=== PATIENT | female | born 2000 | race Caucasian/White ===

== ENCOUNTER 2020-04-15 19:55 | Emergency (ER) | payer BC, SELFPAY ==
[2020-04-15 19:56] VITALS: BP 135/76; PULSE 104; RESP 16; TEMP 35; O2SAT 97; BMI 35.0
--- NOTE | 2020-04-15 20:18 | CT_ITS ---
HISTORY: RLQ PAIN X 5 DAYS TECHNIQUE: Helically acquired images were obtained of the abdomen and pelvis following the intravenous administration of 100 ML of Isovue-370 Iodinated contrast. 2D reformats. No oral contrast was administered. A radiation dose optimization technique was used for this scan. COMPARISON: None FINDINGS: # of images incl. paperwork: 407 LUNG BASES: Clear. 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 Liver, spleen, pancreas, and adrenal glands, are normal. The kidneys are normal. The aorta is normal. The patient has a circumaortic left renal vein which is a normal anatomic variant. CT pelvis: Trace pelvic ascites is present. The appendix is normal. Series 2 image 85. The the uterus and right ovary are normal. The left ovary is expanded with a rim-enhancing cystic lesion, likely a dominant follicle in this 19-year-old patient. The left ovarian cystic lesion measures 5.3 cm in long axis dimension, and as a central density of 26 Hounsfield units.. The bladder is decompressed. Bowel-gas pattern is normal. CT/Abdomen/Pelvis W IV Cont ONLY IMPRESSION: Small amount of pelvic free fluid which could be slightly hemorrhagic. Within the left ovary there is a 5.3 cm rim-enhancing lesion most likely representing a dominant follicle. Individualized dose optimization techniques were used for this CT. at 2142 Reported and signed by: Adrián Fuentes MD Electronically Signed: Adrián Fuentes MD at 21:41 EST Tel , Service support ,
--- NOTE | 2020-04-15 20:45 | ED.VISSUMM ---
- ER Visit Summary Date of Service: 04/15/20 Chief Complaint: Abdominal pain History of Present Illness: The patient is a 19 F presenting with abdominal pain. She states this started on Thursday. Pain is in the lower quadrants. She denies nausea or vomiting. Denies decreased appetite. Denies diarrhea or constipation. Denies urinary complaints. Denies possibility of . Her last menstrual period was March 29. Denies fever. Denies other complaints. Physical Examination: Vitals are stable. Patient is afebrile. Alert no acute distress. HEENT exam is unremarkable. Neck is supple. Lungs are clear and equal bilaterally. Heart is regular rate and rhythm. Abdomen is soft bilateral lower quadrant tenderness with no guarding or rebound Extremities are unremarkable. Skin is warm and dry. Remainder of exam is unremarkable. Emergency Department Course and Treatment: Patient given morphine, Zofran IV. CBC shows white count 12.0. Chemistries unremarkable other than potassium 3.4. Urinalysis unremarkable. hCG negative. Covid negative. CT abdomen pelvis shows small amount of pelvic free fluid which could be slightly hemorrhagic. Within the left ovary there is a 5.3 cm rim-enhancing lesion most likely representing a dominant follicle. Pelvic ultrasound shows 4.2 x 2.6 x 5.1 cm complex left ovarian cyst. On reevaluation patient is resting comfortably. She is given a prescription for [place]. Advised to follow-up with [facility]. Advised return to ED for worsening complaints. Disposition: Discharge home Impression: Abdominal pain, ovarian cyst This note was generated with [employer] dictation software. It may contain incorrect words, spelling, and punctuation that were not noted in review of the chart prior to signing ED Disposition - Plan for ED Patient: Instructions: ED Ovarian Cyst Prescriptions: Hydrocodone Bitart/Apap 5-325 [[place] 5MG-325MG] 1 tab PO Q6H PRN PRN 3 Days #10 tab PRN Reason: Pain Prescription Printed Referrals: Joann Alvarez MD [STAFF PHYSICIAN] -
[2020-04-15 20:53] LABS: Absolute Lymphocyte Count 4.15 X10^3/uL (0.83-4.51); Absolute Neutrophil Count 6.5 X10^3/uL (2.0-7.7); Basophil# 0.11 X10^3/uL; Basophil% 0.9 % (0-1); Eosinophil# 0.12 X10^3/uL; Hematocrit 39.5 % (37-47); Hemoglobin 13.3 g/dL (12.0-15.0); Lymphocyte # 4.15 X10^3/ul (4.0); Lymphocyte % 34.6 % (19-41); Mean Corp Hgb Conc 33.7 g/dL (32-36); Mean Corpuscular Hgb 29.9 pg (27.0-32.0); Mean Corpuscular Volume 88.8 fL (81-99); Mean Platelet Vol. 11.1 fl (6.2-12.0); Monocyte# 0.84 X10^3/uL; NRBC Flagged by Analyzer 0 % (0-5); Neutrophil # 6.52 X10^3/uL (2.7-7.7); Neutrophil % 54.4 % (47-70); Platelet Count 318 K/mm3 (150-450); RBC Distribution Width CV 11.9 % (11.6-14.6); RBC Distribution Width SD 38.4 fl (35.1-43.9); Red Blood Count 4.45 M/mm3 (4.2-5.4)
[2020-04-15 21:02] VITALS: BP 122/71; PULSE 83; RESP 14; O2SAT 97
[2020-04-15 21:03] LABS: Bacteria 0 SEEN /hpf (None Seen); Mucous, Urine 0 SEEN /hpf (<or=2+); Red Blood Cells-Urine 0 SEEN /hpf (0-5)
[2020-04-15 21:03] LABS: Internal QC Validated? YES +Cl - CLEAR BKGD; Pregnancy, Serum, hCG Quali. NEGATIVE Negative
[2020-04-15 21:09] LABS: AST(SGOT) 13 U/L (15-37); Alanine Aminotransfer ALT/SGPT 22 U/L (13-56); Alkaline Phosphatase 102 U/L (45-117); Anion Gap 6 (5-15); BUN 13 mg/dL (7-18); BUN/Creat Ratio 16.8 RATIO (10-20); Calcium,Total 8.8 mg/dL (8.5-10.1); Chloride 109 mmol/L (98-107); Creatinine, Serum 0.77 mg/dL (0.55-1.02); EST Glomerular Filtration Rate 99 mL/min (>60); Est Glom Filt Rate - Afr Amer 120 mL/min (>60); Globulin 3.9 g/dL (2.2-4.2); Glucose 99 mg/dL (74-106); Potassium 3.4 mmol/L (3.5-5.1); Protein, Total 7.9 g/dL (6.4-8.2); Sodium Level 140 mmol/L (136-145)
[2020-04-15 21:24] LABS: Color, Urine Yellow (Yellow); Glucose, Dipstick Normal (Normal); Ketone-Dipstick Negative (Negative); Leukocyte Esterase-Dipstick 25 /ul (Negative); Nitrite-Dipstick Negative (Negative); Occult Blood-Urine Negative /ul (Negative); Protein-Dipstick Negative (Negative); Urine Bilirubin Dipstick Negative (Negative); Urine Clarity Clear (Clear); Urine Urobilinogen Normal (Normal)
[2020-04-15 21:32] LABS: Squamous Epithelial Cells - UA 0-5 SEEN /hpf (5-10); White Blood Cells 0-5 SEEN /hpf (0-5)
--- NOTE | 2020-04-15 21:47 | US_ITS ---
HISTORY: 5 days of pelvic pain. LMP 03/29/2020. 113 images and one cine clip. Comparison CT scan of the abdomen and pelvis was performed just over one hour earlier. This demonstrated a left ovarian cyst. Findings: The cine clip demonstrates the complex left ovarian cyst adjacent to the urinary bladder in the left adnexal region. Transabdominal imaging: Urinary bladder is adequately distended. The uterus measures 7.4 x 3.9 x 4.1 cm. Color Doppler imaging demonstrates flow within the myometrium and not within the endometrium. The endometrial stripe is normal at 7 mm on these transabdominal images. The right ovary is well-defined with follicles. The right ovary measures 9.4 x 2.1 x 2.2 cm. Color Doppler imaging and pulse Doppler imaging suggest arterial and venous flow to right ovarian parenchyma. The left ovarian cyst is demonstrated. The left ovary measures 5 x 5.5 x 5.2 cm. The left ovarian cyst measures 4.2 x 3.6 x 5.1 cm. Color Doppler and pulse-wave Doppler imaging demonstrate arterial flow in the left ovarian parenchyma. No endovaginal imaging. US/Pelvic (Non ) IMPRESSION: 4.2 x 2.6 x 5.1 cm complex left ovarian cyst. Impression 1-year-old female this is likely follicular. Recommend follow-up imaging in 6-12 weeks to assess for resolution at 2303 Reported and signed by: Adrián Fuentes MD Electronically Signed: Adrián Fuentes MD at 23:02 EST Tel , Service support ,
[2020-04-15] MEDS: Ondansetron 4 MG/2 ML Vial IV (22:13)
[2020-04-15] MEDS: Morphine 4 MG/ML Syringe IV (22:13)
--- NOTE | 2020-04-15 22:14 | ED.DEP ---
ED Disposition - Plan for ED Patient: Instructions: ED Ovarian Cyst Prescriptions: Hydrocodone Bitart/Apap 5-325 [[place] 5MG-325MG] 1 tab PO Q6H PRN PRN 3 Days #10 tab PRN Reason: Pain Prescription Printed Referrals: Joann Alvarez MD [STAFF PHYSICIAN] -
[2020-04-15 23:45] VITALS: BP 124/89; PULSE 81; RESP 15; O2SAT 98
[2020-04-16 00:04] VITALS: BP 128/82; PULSE 86; RESP 14; O2SAT 99
== END 2020-04-16 00:06 | disposition home or self-care (01) ==
PROVIDERS: Emergency Provider Emergency Medicine
DX: R10.9 Unspecified abdominal pain (principal); N83.202 Unspecified ovarian cyst, left side
CPT/HCPCS: 74177; 76856; 80053; 81001; 84703; 85025; 87426; 93976; 96374; 96375; 99283; Q9967; A4216; J2405

== ENCOUNTER 2020-04-17 11:26 | Day surgery (SDC) | payer BC, SELFPAY ==
[2020-04-16 09:40] VITALS: BMI 34.5
[2020-04-17] VITALS (7 sets, daily range): BP systolic 89–117; BP diastolic 52–72; PULSE 61–80; RESP 16–18; TEMP 36.5–36.7; O2SAT 98–100; BMI 34.7
[2020-04-17] MEDS: Lactated Ringers 1,000 ML 125 ML IV ×2 (07:00→14:49)
[2020-04-17 11:53] LABS: Internal QC Validated? YES +Cl - CLEAR BKGD; Pregnancy, Urine Negative Negative
[2020-04-17 12:14] LABS: International Normalized Ratio 1.1; Prothrombin Time (Protime)PT. 13.3 SECONDS (11.7-14.9)
[2020-04-17 12:15] LABS: Partial Thromboplast Time 30.5 Seconds (24.1-36.2)
--- NOTE | 2020-04-17 12:28 | PCM.HPOB.BLA ---
- Problem List (1) Ovarian cyst Status: Acute History and Physical Date of Admission: 04/17/20 Intake Vital Signs 03/29/20 Height 5 ft 03/29/20 Weight: 203 lb 6 oz 03/29/20 BMI 39.6 03/29/20 BP 150/92 H Intake Visit Reasons: pre op Awning Frame Maker Required: No Is patient in pain?: No Allergies vancomycin Allergy (Severe, Verified 03/29/20 16:27) kidney failure adhesive Allergy (Mild, Verified 03/29/20 16:27) wolfe codeine Allergy (Mild, Verified 03/29/20 16:27) vomiting CT dye Allergy (Severe, Uncoded 03/12/19 10:31) kidney failure Medications cetirizine 10 mg capsule 10 mg PO DAILY 02/08/19 [History Confirmed 03/29/20] fluticasone propionate 50 mcg/actuation nasal spray,suspension 1 spray INTRANASAL DAILY 02/08/19 [History Confirmed 03/29/20] lansoprazole 30 mg capsule,delayed release PO #90 cap 02/08/19 [History Confirmed 03/29/20] losartan 100 mg tablet PO #90 tab 02/08/19 [History Confirmed 03/29/20] metformin 500 mg tablet,extended release 24 hr PO #180 tab 02/08/19 [History Confirmed 03/29/20] atorvastatin 20 mg tablet 20 mg PO DAILY 01/23/20 [History Confirmed 03/29/20] ferrous sulfate 325 mg (65 mg iron) tablet 325 mg PO Q OTHER DAY tab 01/23/20 [History Confirmed 03/29/20] tranexamic acid 650 mg tablet 650 mg PO TID PRN 01/23/20 [History Confirmed 03/29/20] Post menopausal: No Patient : No : No [facility] Medical History Indigestion (Acute) Allergies (Chronic) Platelet disorder (Chronic) Anemia (Acute) Diabetes (Chronic) Hypertension (Chronic) Abnormal Pap smear of cervix (Acute) Carpal tunnel syndrome (Acute) History of sepsis (Acute) Surgical History History of (Resolved) S/P carpal tunnel release (Resolved) S/P tonsillectomy and adenoidectomy (Resolved) Status post colposcopy (Resolved) Family History Grandmother Heart disease Diabetes Grandfather CVA (cerebral vascular accident) Father Cirrhosis of liver Social History (Updated 03/29/20 @ 21:[address] Vandana Almazan MD) Smoking Status: Light Smoker (<10/day) alcohol intake: never substance use type: does not use caffeine: Yes what type of physical activity do you participate in: none seatbelt use: always do you feel safe at home: Yes additional social history: HPI pre op: Details: MASON DEY is a 39 year old who presents for preop visit for diagnostic laparoscopy, possible fulguration of endometriosis, possible left salpingo-oophorectomy. Pregancy History 2 Elective abortions 1 Hx Para 1 Spontaneous abortions Hx # Term Pregnancies Ectopic pregnancies Hx # Pregnancies Multiple births # of living children 1 Past Pregnancies Del. Date Name GA/Weeks Outcome Route Bth Weight Gen Labor Lgth Anesthesia Del Locatn Provider FOB Unknown Kyea ROS Const Constitutional: Reports system reviewed and no additional complaints, except as docu; denies chills or fever(s) Eyes Eyes: Reports system reviewed and no additional complaints, except as docu ENT ENT: Reports system reviewed and no additional complaints, except as docu Cardio Card: Reports system reviewed and no additional complaints, except as docu; denies chest pain, leg swelling or rapid, pounding, or irregular heartbeat Resp Resp: Reports system reviewed and no additional complaints, except as docu; denies dyspnea GI GI: Reports system reviewed and no additional complaints, except as docu; denies constipation, nausea or vomiting : Reports system reviewed and no additional complaints, except as docu; denies painful urination, pelvic pain, urinary frequency, urinary hesitancy, urinary urgency, vaginal discharge, vaginal odor or vaginal itching Musc Musc: Reports system reviewed and no additional complaints, except as docu Skin Skin/Breast: Reports system reviewed and no additional complaints, except as docu Neuro Neuro: Reports system reviewed and no additional complaints, except as docu Psych Psych: Reports system reviewed and no additional complaints, except as docu Endo Endo: Reports system reviewed and no additional complaints, except as docu Exam Const General: cooperative, healthy appearing, comfortable, well developed, well groomed Orientation: alert, awake, oriented x3 Neck Neck: normal visual inspection, full ROM Resp Effort & Inspection: normal respiratory effort, able to speak in complete sentences, symmetric chest movement Cardio Rate: regular rate Skin General: no rashes or lesions noted, elasticity normal, turgor normal Lesions: no lesions Rashes: no rashes Neuro General: alert, awake, oriented x3 Cranial Nerves: CN's II-XI intact bilaterally, PERRL, EOM intact bilaterally Cognition: normal cognition Speech: speech normal Gait: normal gait Extrem General: normal to inspection, full ROM, no pedal edema Psych Appearance: grossly normal Mental Status: mental status grossly normal Mood: congruent mood Affect: normal affect Speech and Movement: speech and movement normal Attitude: cooperative Thought Process: normal Thought Content: normal Assessment & Plan 1. Pelvic pain R10.2 Plan Patient presents for preop visit for diagnostic laparoscopy, possible fulguration of endometriosis, possible left salpingo-oophorectomy for pelvic pain and left-sided pain. Prior ultrasound showed left ovary to be densely adherent to abdominal wall. Patient has a history of a platelet disorder. Patient's director of ancillary services made recommendations for preop transfusion of 1 pack of platelets. We will plan to have 1 additional pack of platelets available intraoperatively as platelets are not readily available in our blood bank. Patient also to be seen by anesthesiologist prior to surgery. At her prior visit, we reviewed the risk, benefits, indications, and alternatives to the procedure including bleeding, infection, and visceral or vascular injury. Patient denies questions today. Discussed postoperative course and normal postoperative care. Patient plans to take 3 weeks of FMLA after surgery. Patient's medical and surgical histories were reviewed in the office and no changes were noted. Consent form signed with patient in the office today. UPDATE- I have seen the patient and performed any clinically relevant updates to the history and physical exam. Vandana Almazan MD
--- NOTE | 2020-04-17 12:29 | DCINST_ITS ---
Discharge Diet: No Restrictions, - - Increase fluid intake for 48 hours. Discharge Activity: Return to Normal Activity, May Drive - when you are no longer taking narcotic pain medications., May Shower, May Take a Tub Bath - in 7 days., - - Ambulate often the next week after surgery. Additional Activity Instructions:: Nothing in the vagina for the next 5 days. Call your doctor if your incision/area has: Continuous Slow Oozing, Sudden Increased Bleeding, Increased Pain/ Swelling, Increased Redness, Foul Smelling Discharge, Swelling at the incision site Call your doctor if you observe: Fever of 101 or Higher Allergies/Adverse Reactions: Allergies No Known Allergies Allergy (Verified 04/17/20 11:35) Medications to take at Discharge Hydrocodone Bitart/Apap 5-325 [[place] 5MG-325MG] 1 tab PO Q6H PRN PRN 3 Days #10 tab 04/15/20 Orders to be completed after discharge: Type & Screen - PAT ONLY Time Frame: 04/17/20, Facility: [facility], Location: Laboratory Partial Thromboplast Time Time Frame: 04/17/20, Facility: [facility], Location: Laboratory Prothrombin Time w/INR Time Frame: 04/17/20, Facility: [facility], Location: Laboratory Primary Care Physician: Care Physician,No Primary [Primary Care Provider] - Test Results: Test results from this visit will be discussed in further detail at your follow- up appointment, if applicable.
--- NOTE | 2020-04-17 12:53 | OP.PCM_ITS ---
Problem List (1) Ovarian cyst Status: Acute Report of Operation Date of Procedure: 04/17/20 Pre-Operative Diagnosis: Suspected ovarian cyst Post-Operative Diagnosis: Left ovarian cyst Surgery/Procedure Performed:: Diagnostic laparoscopy, left ovarian cystectomy Description of Surgical Findings:: Large left ovarian cyst. Normal uterus, cervix, bilateral tubes, and right ovary. drill press operator for metal: Zehra Maldonado Type of Anesthesia:: General Special Medications: o.25% marcaine Estimated Blood Loss (mL): 20 ml Fluids Replaced: 1000 ml Description of Procedure: The patient was taken to the operating room where general anesthesia was obtained without difficulty. She was prepped and draped in the dorsal lithotomy position with yellofin stirrups. A weighted speculum was placed in the posterior aspect of the vagina and the anterior lip of the cervix was grasped with a single-tooth tenaculum. The uterus was sounded and found to be 8 cm. A Zumi uterine manipulator was placed without difficulty and all other instruments were removed from the vagina. Gloves were changed and attention was directed to the abdomen. The umbilicus was grasped with towel clamps. 10cc of 0.25% marcaine was used to anesthetize the umbilicus. A 5mm incision was made at the base of the umbilicus. A veress needle was inserted without difficulty and intra-abdominal placement was confirmed using the water-drop test. The abdomen was insufflated to 15 mmHg and the veress needle was removed. A 5mm optiview trochar was then placed under direct visualization. Initial survey of the abdominal cavity revealed no evidence of trauma. The above findings were noted. Additional 5mm ports were placed in the right and left lower quadrant. The left ovary was elevated. A incision was made with monopolar cautery along the nonvascular portion of the ovary. The cyst was noted to have ruptured at this point and the cyst fluid was removed. The cyst wall was dissected out of the ovary. With a combination of blunt and sharp dissection. Hemostasis was achieved with monopolar cautery. Olga was placed inside the cyst bed. The pelvis was irrigated and cleared of all clot and debris. The area was reinspected and good hemostasis was noted. The procedure was deemed complete. All instruments were removed from the abdominal cavity. The port sites were closed in a simple interrupted fashion using 3-0 monocryl and sterile dressings were placed. The uterine manipulator was removed. The patient was awakened from anesthesia and taken to the recovery room in stable condition. - Complications None apparent - Admit VTE Documentation VTE Present on Admission: No VTE Mechan Device Prophylaxis: SCD's VTE Pharm Prophylaxis ordered?: No Multi Select Codes - Urinary/Genital Urinary/Genital CPT Codes: Other Procedure See Report - Laparoscopic ovarian cystectomy
--- NOTE | 2020-04-17 13:00 | OV_PTH ---
PATIENT: TELMA STEEVNS [place] [facility] [id number] AGE/SX: ROOM: RE04/17/[address]: Dr. Vandana Almazan MD : 2000 BED: DIS: 04/17/2020 SPEC #: [id number] RECD: 04/17/20 15:13 STATUS: ANDERS BARNETT #: [id number] JAVED: 04/17/20 13:[address]: Vandana Almazan DEPT: SURGICAL PATHOLOGY RECD BY: Alida Loomis ENTERED: 04/18/20 07:14 SP TYPE: OVARY OTHR DR: No Primary Care Phys Tissues: OVARIAN CYST Procedures: Surgery Specimen Level IV HEADER OPERATION: Diagnostic laparoscopy, laparoscopic left ovarian cystectomy PRE-OP DIAGNOSIS: Ovarian cyst, pelvic pain TISSUE SUBMITTED: Left ovarian cyst wall MICROSCOPIC DIAGNOSIS Left ovarian cyst wall, biopsy: Consistent with fragments and contents of hemorrhagic corpus luteal cyst. AM:holli 04/19/2020 MICROSCOPIC DESCRIPTION Slides are reviewed. GROSS DESCRIPTION Received in fixative is one container labeled with the patient's name and designated left ovarian cyst wall. The specimen consists of multiple irregular fragments of light singleton soft tissue that in aggregate measure 1.5 x 1 x 0.2 cm. The specimen is totally submitted in one cassette. / AM:holli 04/18/20 TC:5 CPT: 99942
[2020-04-17] MEDS: Bupivacaine 0.25% 30 ML Vial (13:37)
--- NOTE | 2020-04-17 14:57 | HP.PCM_ITS ---
- Problem List (1) Ovarian cyst Status: Acute History and Physical Date of Admission: 04/17/20 Intake Vital Signs 04/16/20 Height 5 ft 3 in 04/16/20 Weight: 195 lb 2 oz 04/16/20 BP 114/86 H Intake Visit Reasons: [facility] ER f/u, ovarian cyst, CT & US done Nursing Instructor Required: No Is patient in pain?: Yes Pain scale (1-10): 7 Allergies No Known Allergies Allergy (Verified 04/16/20 09:40) Medications Hydrocodone Bitart/Apap 5-325 [[place] 5MG-325MG] 1 tab PO Q6H PRN PRN 3 Days #10 tab 04/15/20 [Rx Confirmed 04/16/20] Post menopausal: No Patient : No : No PFSH Family History (Updated 04/16/20 @ 09:41 by Taylor Olivares) Grandmother Diabetes Grandfather Diabetes Social History (Updated 04/16/20 @ 10:[address] Vandana Almazan MD) Smoking Status: Never smoker alcohol intake: current details: occasionally substance use type: does not use what type of physical activity do you participate in: aerobics, weight training frequency: 3-4 times per week seatbelt use: always do you feel safe at home: Yes additional social history: HPI [facility] ER f/u, ovarian cyst, CT & US done: Details: TELMA STEVENS is a 19 year old who presents for ER follow-up. Has been having stabbing pain since Thursday. Was found to have a cyst on her ovary on CT scan. Reports pain is worse this am. Pain is sharp in nature. Worse with hot bath. Had a period from 03/29-04/01. Denies associated nausea, vomiting, fevers and chills. ROS Const Constitutional: Reports system reviewed and no additional complaints, except as docu; denies chills or fever(s) Eyes Eyes: Reports system reviewed and no additional complaints, except as docu ENT ENT: Reports system reviewed and no additional complaints, except as docu Cardio Card: Reports system reviewed and no additional complaints, except as docu; denies chest pain, leg swelling or rapid, pounding, or irregular heartbeat Resp Resp: Reports system reviewed and no additional complaints, except as docu; denies dyspnea GI GI: Reports system reviewed and no additional complaints, except as docu; denies constipation, nausea or vomiting : Reports system reviewed and no additional complaints, except as docu and pelvic pain; denies painful urination, urinary frequency, urinary hesitancy, urinary urgency, vaginal discharge, vaginal odor or vaginal itching Musc Musc: Reports system reviewed and no additional complaints, except as docu Skin Skin/Breast: Reports system reviewed and no additional complaints, except as docu Neuro Neuro: Reports system reviewed and no additional complaints, except as docu Psych Psych: Reports system reviewed and no additional complaints, except as docu Endo Endo: Reports system reviewed and no additional complaints, except as docu Exam Const General: cooperative, healthy appearing, comfortable, well developed, well groomed Neck Neck: normal visual inspection, full ROM Resp Effort & Inspection: normal respiratory effort, able to speak in complete sentences, symmetric chest movement Cardio Rate: regular rate GI Inspection: normal to inspection, no edema, non-distended, no scars Palpation: soft, guarding (voluntary, worst in RLQ), no masses, not rigid, tender (diffusely with worst pain in RLQ) Skin General: no rashes or lesions noted, elasticity normal, turgor normal Lesions: no lesions Rashes: no rashes Neuro General: alert, awake, oriented x3 Cranial Nerves: CN's II-XI intact bilaterally, PERRL, EOM intact bilaterally Cognition: normal cognition Speech: speech normal Gait: normal gait Extrem General: normal to inspection, full ROM, no pedal edema Psych Appearance: grossly normal Mental Status: mental status grossly normal Mood: congruent mood Affect: normal affect Speech and Movement: speech and movement normal Attitude: cooperative Thought Process: normal Thought Content: normal Assessment & Plan 1. Cyst of left ovary N83.202 Plan Patient presents for ER follow-up for left ovarian cyst. She has been having right pelvic pain since Thursday. Pain is constant, but intermittently worsens. Ultrasound in ER showed [id number] left ovarian cyst. Discussed with patient that her history is concerning for intermittent ovarian torsion. I recommend that she proceed with laparoscopic ovarian cystectomy. Discussed that I recommend adding the surgery on for tomorrow as I am concerned that her pain will not improve without this or that her ovary could torse fully which would require emergent surgery. The nature of the procedure was discussed with the patient. Risks, benefits, indications, and alternatives to the procedure were discussed with the patient including bleeding, infection, and visceral or vascular injury. Agreeable to blood products if medically necessary. Discussed possibility of infection inside abdomen or at incision sites which could require outpatient or inpatient antibiotics. Discussed the possibility of injury to uterus, tubes, ovaries, bowel, and bladder. Aware that this could require intra-op consult to general surgery or urology. Also aware of the possibility of prolonged hospitalization or reoperation. Discussed possibility of need to convert to open to procedure. Discussed that while the cyst appears to be on the left side on ultrasound, there is always a possibility that the cyst could be on the right side. Discussed that if this is the case, I would address the abnormal side. Discussed that if I am not able to dissect the cyst from the ovary, there is a chance of draining the cyst. Discussed that there is also a possibility that the cyst may not be able to be removed or that I could run in to bleeding which could require me to fully remove the ovary. All questions were answered. Patient voices understanding and agrees to proceed. Plan to proceed with diagnostic laparoscopy, possible left ovarian cystectomy, possible left salpingoophorectomy, possible right. UPDATE- I have seen the patient and performed any clinically relevant updates to the history and physical exam. Vandana Almazan MD
== END 2020-04-17 16:30 | disposition home or self-care (01) ==
LOC: SDC 11:27 → AC 11:28
PROVIDERS: Anesthesiology; Referring Provider Obstetrics & Gynecology; Visit Provider Obstetrics & Gynecology
PROC: (CPT 49320; principal; 2020-04-17 12:45)
DX: N83.12 Corpus luteum cyst of left ovary (principal)
CPT/HCPCS: 58662; 81025; 85610; 85730; 86850; 86900; 86901; 88305; J7120; J2405